=== PATIENT | female | born 1955 | race Caucasian/White ===

== ENCOUNTER 2025-10-15 16:53 | Emergency (ER) | payer MEDICARE, BC, SELFPAY ==
[2025-10-15] VITALS (23 sets, daily range): BP systolic 120–158; BP diastolic 58–107; PULSE 58–84; RESP 10–24; TEMP 36.4; O2SAT 97–100
--- NOTE | 2025-10-15 16:45 | RT.EKG_ITS ---
APPROVED REPORT Exam: Resting ECG Reason for Exam: dizzyness Patient Location: E HR:75 bpm ECG Measurements Heart Rate 75 AXIS NC 199 P 85 QRSd 75 QRS 39 QT 431 T 55 QTc 483 Conclusion Incomplete analysis due to missing data in precordial lead(s) Sinus rhythm...normal P axis, V-rate 60- 99 Consider anteroseptal infarct...Q >30mS, dimin R, V1-V2 No Occlusion [place]
--- NOTE | 2025-10-15 17:00 | RT.EKG_ITS ---
APPROVED REPORT Exam: Resting ECG Reason for Exam: dizziness Patient Location: E HR:63 bpm ECG Measurements Heart Rate 63 AXIS VA 180 P 64 QRSd 77 QRS 38 QT 428 T 57 QTc 437 Conclusion Sinus rhythm...normal P axis, V-rate 60- 99 Consider anteroseptal infarct...Q >30mS, dimin R, V1-V2 No Occlusion DC
[2025-10-15] MEDS: Metoclopramide 10 MG/2 ML VIAL 5 MG IVP (18:37)
[2025-10-15] MEDS: Normal Saline 1,000 ML 1000 ML IV (18:39)
[2025-10-15 18:52] LABS: Glucose Negative (Negative); RBC Negative HPF (0-2); WBC 0-2 HPF (0-5)
[2025-10-15 18:53] LABS: Abs Immature Grans 0.01 10^3/uL (0.0-0.06); HCT 46.1 % (36.0-46.0); HGB 15.1 g/dL (11.2-15.7); Immature Grans % 0.2 %; MCH 31.3 pg (27.0-33.0); MCHC 32.8 % (32.0-36.0); MCV 95 fL (80-95); MPV 10.0 fL (8.0-11.0); Platelet Count 165 10^3/uL (130-400); RBC 4.83 10^6/uL (3.93-5.22); RDW 12.0 % (11.7-14.6); RDW-SD 42.3 fL; WBC 5.92 10^3/uL (4.4-10.8)
[2025-10-15 18:53] LABS: C & S Indicated? No
[2025-10-15 19:12] LABS: Magnesium 2.4 mg/dL (1.6-2.6)
[2025-10-15 19:14] LABS: ALT 13 U/L (10-49); AST 18 U/L (<34); Albumin 5.0 g/dL (3.2-5.0); Alkaline Phosphatase 76 U/L (46-116); Anion Gap 8.7 mmol/L (3-11); BUN 20 mg/dL (9-23); Bilirubin, Total 0.3 mg/dL (0.2-1.2); CO2 30.3 mmol/L (20.0-31.0); Calcium 9.8 mg/dL (8.3-10.6); Chloride 105 mmol/L (98-107); Glucose 101 mg/dL (74-106); Potassium 3.8 mmol/L (3.5-5.1); Sodium 144 mmol/L (136-145); TSH (W/Ref FT4) 1.50 uIU/mL (0.55-4.78); Total Protein 7.8 g/dL (5.7-8.2)
[2025-10-15 19:15] LABS: Troponin I < 3 ng/L (<35)
[2025-10-15 19:23] LABS: COVID-19 PCR Negative (Negative); RSV PCR Negative (Negative)
[2025-10-15 20:07] LABS: Troponin I < 3 ng/L (<35)
--- NOTE | 2025-10-16 18:35 | ED.GENADUL_ITS ---
Discharge Plan Disposition Patient Disposition: Home Condition: Stable Discharge Details Clinical Impression: Light-headed feeling, Tiredness Primary Care Provider: Petrona,Local ED Provider: Brie Shipley Home Meds and New Rx's Prescriptions: New meclizine 25 mg tablet 25 mg PO BID PRNQty: 10 0RF Rx Instructions: prn dizziness Discharge Instructions Instructions: Vertigo (a type of dizziness), Fatigue ED Additional Instructions: Please follow-up with your primary care physician when you arrive home for reassessment Your tests today are quite reassuring Please rest for the remainder of the evening and have a nice meal when you arrive home and keep yourself hydrated I have also written for meclizine, if this was an episode of vertigo, this may help your symptoms Stand Alone Forms: Portal Information Discharge Data Discharge Date/Time-TO BE ENTERED AT DEPARTURE: 10/15/25 20:28 [facility] General Date/Time Provider Initiated Documentation: 10/15/25 17:17 . HPI Narrative: 70-year-old female with history of interstitial lung disease being followed at [facility] [place] her partner after waking from nap and feeling lightheaded and nauseous. Frontal and occipital headache and perioral numbness denies chest pain, shortness of breath, strength or sensation changes to her extremities or speech change. States she felt very weak generally. Denies any urinary component or risk of carbon monoxide exposure. States she was feeling well but quite tired for the past 3 days. Denies known sick contacts. Related Data Home Medications ?Medication ?Instructions ?Recorded ?Confirmed meclizine 25 mg tablet 25 mg PO BID PRN #10 tabs Previous Rx's ?Medication ?Instructions ?Recorded meclizine 25 mg tablet 25 mg PO BID PRN #10 tabs Allergies Allergy/AdvReac Type Severity Reaction Status Date / Time Sulfa (Sulfonamide AdvReac Severe Anaphylaxis Verified 10/15/25 17:05 Antibiotics) Penicillins AdvReac Intermediate Hives Verified 10/15/25 17:05 General Stated Complaint: Dizzy/Sync ASAF: 2 Exam Narrative Exam Narrative: Alert and oriented 70-year-old female pale looks tired, pupils equal round reactive light and accommodation lungs clear to auscultation cardiac rate rhythm regular orthostatics negative cardiac rate rhythm regular, no abdominal tenderness alert and oriented x 4 cranial nerves II through intact negative [id number] negative heel reyes, negative pronator drift Sujan sensation intact distally to all 4 extremities distal pulses intact, no abdominal tenderness Course Vital Signs Vital signs: Vital Signs Temperature 36.4 C L 10/15/25 16:56 Pulse 63 10/15/25 16:56 Respiratory Rate 16 10/15/25 16:56 Blood Pressure 120/66 10/15/25 16:56 Pulse Oximetry 97 10/15/25 16:56 Temperature 36.4 C L 10/15/25 16:56 Temperature Source Temporal Artery Scan 10/15/25 16:56 Pulse 59 L 10/15/25 20:10 Pulse 60 10/15/25 20:10 Respiratory Rate 18 10/15/25 20:10 Respiratory Effort Normal, Non-Labored 10/15/25 18:54 Respiratory Depth Normal 10/15/25 18:54 Respiratory Pattern Normal 10/15/25 18:54 Blood Pressure 132/92 H 10/15/25 20:00 Blood Pressure Mean 103 10/15/25 20:00 Blood Pressure Position Sitting 10/15/25 16:56 Pulse Oximetry 100 10/15/25 20:10 Oxygen Delivery Method Room Air 10/15/25 16:56 Oxygen Flow Rate 0 10/15/25 16:56 Pain Level 2 10/15/25 20:27 Lab/Test Results Lab/Test Results: Laboratory Tests Range/Units 10/15/25 10/15/25 10/15/25 18:31 18:35 19:35 WBC (4.4-10.8) 10^3/uL 5.92 RBC (3.93-5.22) 10^6/uL 4.83 Hgb (11.2-15.7) g/dL 15.1 Hct (36.0-46.0) % 46.1 H MCV (80-95) fL 95 MCH (27.0-33.0) pg 31.3 MCHC (32.0-36.0) % 32.8 RDW (11.7-14.6) % 12.0 Plt Count (130-400) 10^3/uL 165 MPV (8.0-11.0) fL 10.0 Immature Gran % % 0.2 Neutrophils % % 67.3 Lymphocytes % % 21.8 Monocytes % % 9.0 Eosinophils % % 0.7 Basophils % % 1.0 Nucleated RBC % (0.0-0.3) % 0.0 Absolute Neutrophils (1.2-6.7) 10^3/uL 3.99 Absolute Lymphocytes (1.2-3.4) 10^3/uL 1.29 Absolute Monocytes (0.1-0.8) 10^3/uL 0.53 Absolute Eosinophils (0.0-0.7) 10^3/uL 0.04 Absolute Basophils (0.0-0.2) 10^3/uL 0.06 Sodium (136-145) mmol/L 144 Potassium (3.5-5.1) mmol/L 3.8 Chloride (98-107) mmol/L 105 Carbon Dioxide (20.0-31.0) mmol/L 30.3 Anion Gap (3-11) mmol/L 8.7 BUN (9-23) mg/dL 20 Creatinine (0.55-1.02) mg/dL 0.92 Est GFR (CKD-EPI 2020) (mL/min/1.73m2) 60.04 Glucose (74-106) mg/dL 101 Calcium (8.3-10.6) mg/dL 9.8 Magnesium (1.6-2.6) mg/dL 2.4 Total Bilirubin (0.2-1.2) mg/dL 0.3 AST (<34) U/L 18 ALT (10-49) U/L 13 Alkaline Phosphatase (46-116) U/L 76 Troponin I (<35) ng/L < 3 < 3 Total Protein (5.7-8.2) g/dL 7.8 Albumin (3.2-5.0) g/dL 5.0 TSH (0.55-4.78) uIU/mL 1.50 Urine Color (Yellow) Yellow Urine Clarity (Clear) Clear Urine pH (5-8) 7.0 Ur Specific Muir (1.005-1.025) 1.015 Urine Protein (Neg-Trace) mg/dL Negative Urine Ketones (Negative) mg/dL Negative Urine Blood (Negative) Negative Urine Nitrite (Negative) Negative Urine Bilirubin (Negative) Negative Urine Urobilinogen (Up to 0.2) mg/dL 0.2 Ur Leukocyte Esterase (Negative) Trace H Urine RBC (0-2) HPF Negative Urine WBC (0-5) HPF 0-2 Ur Epithelial Cells (Negative) HPF Negative Urine Crystals (Negative) HPF Negative Urine Bacteria (Negative) HPF Negative Urine Casts (Negative) LPF Negative Urine Mucus (Negative) Negative Urine Other (Negative) Negative Ur Culture Indicated? No Urine Glucose (Negative) mg/dL Negative COVID-19 Source Nasopharynx SARS-CoV-2 (PCR) (Negative) Negative Influenza Type A (PCR) (Negative) Negative Influenza Type B (PCR) (Negative) Negative RSV (PCR) (Negative) Negative Medical Decision Making Results: CBC, CMP, TSH, troponins x 2 urinalysis tick panel pending, remainder of lab test all within normal limits. Assessment and plan: Patient presenting with lightheadedness, nausea, perioral numbness, low suspicion clinically for any central neurological possibles, perhaps patient may have been episode of labyrinthitis or peripheral vertigo. Symptoms began improving slowly after presentation and continued to improve without any significant intervention. Patient is otherwise afebrile and nontoxic, she is ambulatory with steady gait orthostatics are negative. She is encouraged to follow-up with her primary care physician when she returns home and return earlier should she have new or worsening complaints, EKG and troponin troponins do not show evidence of acute coronary artery disease. I did consider stroke, TIA, or other pathologies however these are much lower suspicion based on my assessment at time of ED evaluation. Discharged home in care of [facility] All Active Problems (Updated 10/15/25 @ 20:15 by JENNIFER Soni) Tiredness (Acute) Light-headed feeling (Acute) Social History Smoking risk assessment performed?: No
[2025-10-17 10:00] LABS: Lyme Ab w Rflx to Lyme Confirm Negative (Negative)
--- NOTE | 2025-10-18 08:45 | NUR.NOTE ---
Access chart to reconcile EKG orders with EKG's in [facility]. Duplicate order cancelled. Nursing Note:
[2025-10-19 12:49] LABS: B. miyamotoi PCR Negative (Negative); Babesia divergens/MO-1 Negative (Negative); Ehrlichia muris eauclairensis Negative (Negative)
== END 2025-10-15 20:28 | disposition home or self-care (01) ==
LOC: ER 20:16
PROVIDERS: Emergency Provider Physician Assistant
DX: R42 Dizziness and giddiness (principal); R53.83 Other fatigue
CPT/HCPCS: 99283; 99284; 36415; 96374; 80053; 87637; 87798; 93005; 96361; 81003; 81015; 83735; 84443; 84484; 85025; 86618; 93010; J2765